=== PATIENT | male | born 1980 | race Caucasian/White ===

== ENCOUNTER → 2016-10-06 | Outpatient (CLI) | payer OTHER ==
[~2016-10-06] MED LIST: CGN1 PO; CLOZ100T PO; ERGO1CAP41 PO; FEXO1TAB49 PO; OXCA600T2 PO; PRLSR20 PO; PROP20TA67 PO; SERT-234 PO
[2016-10-06 16:14] LABS: ALT/SGPT 36 U/L (12-78); AST/SGOT 21 U/L (15-37); BLOOD UREA NITROGEN 10 mg/dl (7-18); BUN/CREATININE RATIO 9.9 (10-20); CARBON DIOXIDE 30 mmol/L (21-32); CHLORIDE 101 mmol/L (98-107); GLUCOSE 90 mg/dl (70-99); POTASSIUM 3.8 mmol/L (3.5-5.1); SODIUM 138 mmol/L (136-145)
[2016-10-06 16:23] LABS: ALB/GLOB RATIO 1.6 (0.9-2); ALKALINE PHOSPHATASE 105 U/L (45-117); CHOLESTEROL 153 mg/dl (0-200); CHOLESTEROL/HDL RATIO 3.2; HDL CHOLESTEROL 48 mg/dl; LDL CHOLESTEROL CALCULATED 83 mg/dl; TRIGLYCERIDES 109 mg/dl (0-150); VERY LOW DENSITY LIPOPROT CALC 22 mg/dl
== END | disposition home or self-care (01) ==
LOC: C.LAB1850 14:44
PROVIDERS: ATTEND Internal Medicine
DX: Z87.898 Personal history of other specified conditions (principal); E55.9 Vitamin D deficiency, unspecified; K59.00 Constipation, unspecified; Z79.899 Other long term (current) drug therapy; Z51.81 Encounter for therapeutic drug level monitoring

== ENCOUNTER → 2016-10-11 | Outpatient (CLI) | payer OTHER ==
--- NOTE | 2016-10-11 14:17 | DIAGNOSTIC IMAGING REPORT ---
ULTRASOUND OF THE SPLEEN CLINICAL HISTORY: Splenomegaly. COMPARISON STUDY: Abdominal CT dated 01/02/2014. Ultrasound of the spleen dated 05/26/2014. FINDINGS: Real-time, grayscale, and color flow sonography of the spleen is performed. The spleen is enlarged measuring 16.8 cm in length. The spleen is homogeneous in echotexture. No focal splenic lesion is seen. There is no perisplenic fluid. IMPRESSION: Splenomegaly, not significantly changed from the 05/26/2014 examination. Electronically signed by: Uday Krishnan M.D. 10/11/2016 2:15 PM Dictated Date/Time: 10/11/2016 2:13 PM
== END | disposition home or self-care (01) ==
LOC: C.ULTR 13:28
PROVIDERS: ATTEND Internal Medicine
DX: R16.1 Splenomegaly, not elsewhere classified (principal)

== ENCOUNTER → 2016-12-05 | Outpatient (CLI) | payer OTHER | END | disposition home or self-care (01) | LOC: C.LAB1850 11:58 | PROVIDERS: ATTEND Psychiatry & Neurology Psychiatry | DX: Z79.899 Other long term (current) drug therapy (principal) ==

== ENCOUNTER → 2017-04-06 | Outpatient (CLI) | payer OTHER ==
[2017-04-06 16:32] LABS: BASO % 0.5 %; BASO ABS # 0.03 K/uL (0-0.2); COMPLETE YES; HEMATOCRIT 39.5 % (42-52); IG% 0.2 %; LYMPH ABS # 1.52 K/uL (1.2-3.4); MEAN CELL VOLUME 87.4 fL (80-100); MEAN CORPUSCULAR HEMOGLOBIN 30.5 pg (25-34); MEAN CORPUSCULAR HGB CONC 34.9 g/dl (32-36); MEAN PLATELET VOLUME 9.7 fL (7.4-10.4); MONO % 7.9 %; NEUT % 61.4 %; PLATELET COUNT 196 K/uL (130-400); RED BLOOD COUNT 4.52 M/uL (4.7-6.1); WHITE BLOOD COUNT 6.33 K/uL (4.8-10.8)
== END | disposition home or self-care (01) ==
LOC: C.LAB1850 15:58
PROVIDERS: ATTEND Psychiatry & Neurology Psychiatry
DX: Z79.899 Other long term (current) drug therapy (principal)

== ENCOUNTER → 2017-10-05 | Outpatient (CLI) | payer OTHER ==
[~2017-10-05] MED LIST changes: +BENZ-89 PO; -CGN1 PO; -ERGO1CAP41 PO; +ERGO500011 PO
[2017-10-05 16:34] LABS: ALBUMIN 3.8 gm/dl (3.4-5.0); ALT/SGPT 45 U/L (12-78); BLOOD UREA NITROGEN 14 mg/dl (7-18); CALCIUM 9.1 mg/dl (8.5-10.1); CARBON DIOXIDE 31 mmol/L (21-32); CREATININE 0.95 mg/dl (0.60-1.40); GLUCOSE 86 mg/dl (70-99); POTASSIUM 3.9 mmol/L (3.5-5.1); SODIUM 139 mmol/L (136-145)
[2017-10-05 16:37] LABS: ALKALINE PHOSPHATASE 111 U/L (45-117); AST/SGOT 25 U/L (15-37); TOTAL PROTEIN 6.8 gm/dl (6.4-8.2)
== END | disposition home or self-care (01) ==
LOC: C.LAB1850 15:08
PROVIDERS: ATTEND Internal Medicine
DX: K59.00 Constipation, unspecified (principal); E55.9 Vitamin D deficiency, unspecified

== ENCOUNTER → 2018-01-03 | Outpatient (CLI) | payer OTHER | END | disposition home or self-care (01) | LOC: C.LAB1850 10:08 | PROVIDERS: ATTEND Psychiatry & Neurology Psychiatry | DX: Z79.899 Other long term (current) drug therapy (principal) ==